=== PATIENT | male | born 1955 | race Caucasian/White ===

== ENCOUNTER 2017-06-16 08:00 | Emergency (ER) | payer MEDICAID ==
[2017-06-16 08:11] VITALS: BP 124/80
--- NOTE | 2017-06-16 09:10 | Emergency Department Report ---
ED Recheck HPI - General Chief Complaint: Medical Clearance Stated Complaint: MED REFILL Time Seen by Provider: 06/16/17 08:25 Source: patient Mode of arrival: Ambulatory Limitations: No Limitations - History of Present Illness Initial Comments: Patient here requesting a refill on multiple medication to include antibiotic anxiety and mental health medication. Patient said he just moved from [place] and he does not have a doctor here and he is trying to find one. He is requesting a refill until he can get into see a doctor. Denies any pain. Denies any nausea or vomiting. Denies any fever or chills. Denies any headache. Patient has a history of congestive heart failure schizophrenia and bipolar. Denies any cough or shortness of breath. Patient does have medication for a few days. He states that he has about 3 days worth of medication. Complaint: medication refill request Initial Visit For: other (not applicable) Returns Today for: request for prescription Symptoms Since Prior Visit: no new symptoms Context: ran out of medication (patient almost running out of medication) Associated Symptoms: none Treatments Prior to Arrival: other (not applicable) - Related Data Allergies Allergy/AdvReac Type Severity Reaction Status Date / Time No Known Allergies Allergy Verified 06/16/17 08:02 ED Review of Systems ROS: Stated complaint: MED REFILL Other details as noted in HPI Comment: All other systems reviewed and negative Constitutional: denies: chills, fever Eyes: denies: vision change ENT: denies: throat pain, epistaxis, congestion Respiratory: no symptoms reported Cardiovascular: denies: chest pain, palpitations, edema, syncope Gastrointestinal: abdominal pain. denies: nausea, vomiting, diarrhea, constipation Genitourinary: denies: urgency, dysuria, frequency, hematuria, discharge, testicular pain, testicular mass Musculoskeletal: denies: back pain, joint swelling, arthralgia, myalgia Skin: denies: rash Neurological: denies: headache, weakness, numbness, paresthesias, confusion, abnormal gait, vertigo Psychiatric: denies: anxiety, depression, homicidal thoughts, suicidal thoughts ED Past Medical Hx - Past Medical History Previous Medical History?: Yes Hx Congestive Heart Failure: Yes Hx Psychiatric Treatment: Yes (schizophrenia, bipolar) - Surgical History Past Surgical History?: No - Family History Family history: hypertension - Social History Smoking Status: Current Every Day Smoker Substance Use Type: Alcohol ED Physical Exam - General Limitations: No Limitations General appearance: alert, in no apparent distress - Head Head exam: Present: atraumatic, normocephalic, normal inspection - Eye Eye exam: Present: normal appearance, PERRL, EOMI Pupils: Present: normal accommodation - ENT ENT exam: Present: normal exam, mucous membranes dry, mucous membranes moist - Neck Neck exam: Present: normal inspection, full ROM. Absent: tenderness, lymphadenopathy - Respiratory Respiratory exam: Present: normal lung sounds bilaterally, respiratory distress. Absent: wheezes, rales, rhonchi, stridor, chest wall tenderness - Cardiovascular Cardiovascular Exam: Present: normal rhythm, bradycardia, normal heart sounds. Absent: systolic murmur, diastolic murmur - GI/Abdominal GI/Abdominal exam: Present: soft, normal bowel sounds. Absent: distended, tenderness, guarding, rebound, rigid - Extremities Exam Extremities exam: Present: normal inspection, full ROM, normal capillary refill. Absent: tenderness, pedal edema, joint swelling, calf tenderness - Back Exam Back exam: Present: normal inspection, full ROM. Absent: tenderness, CVA tenderness (R), CVA tenderness (L), muscle spasm, paraspinal tenderness, vertebral tenderness, rash noted - Neurological Exam Neurological exam: Present: alert, oriented X3, normal gait, reflexes normal. Absent: motor sensory deficit - Psychiatric Psychiatric exam: Present: normal affect, normal mood. Absent: depressed, agitated, anxious, flat affect, manic, homicidal ideation, suicidal ideation - Skin Skin exam: Present: warm, dry, intact, normal color. Absent: rash ED Course Vital Signs 06/16/17 08:03 Temperature 97.8 F Pulse Rate 55 L Respiratory 16 Rate Blood Pressure 124/80 O2 Sat by Pulse 100 Oximetry - Reevaluation(s) Reevaluation #1: 06/16/17 09:33 Patient here for medication refill. Uneventful ED stay ED Recheck MDM - Medical Decision Making ED course: Patient here requesting in refills on multiple medication. He said he just moved from [place] and he has a few days left on his medication and he also requested to be set up for cardiology of appointment. Patient with multiple medication to refill. I spoke to attending Dr. Zayas and he wants patient to follow-up with [facility] where he can have labs drawn before prescribing medication. Patient vital signs are stable and afebrile. I discussed plan with patient and he is in agreement and he says he'll call [facility] to set up an appointment for a new patient visit. Assessment/plan 1. Encounter for medication refill Patient multiple comorbidities and needs labs checked prior to dispense the medication. Patient referred to [facility] and I encouraged him to call today to schedule an appointment for new patient visit. Discharged home in stable condition Critical care attestation.: If time is entered above; I have spent that time in minutes in the direct care of this critically ill patient, excluding procedure time. ED Disposition Clinical Impression: Medication refill Disposition: DC-01 TO HOME OR SELFCARE Is pt being admited?: No Does the pt Need Aspirin: No Condition: Stable Instructions: Heart Failure (ED), Schizophrenia (ED), Chronic Hypertension (ED) Additional Instructions: Please follow up at [facility] as instructed. He will need to be established a primary care physician and have labs due to multiple medication Please call [facility] today to schedule an appointment. Referrals: [facility] [Outside] - 06/17/17
== END 2017-06-16 09:49 | disposition home or self-care (01) ==
LOC: ED 08:00
DX: Z76.0 Encounter for issue of repeat prescription (principal); I50.9 Heart failure, unspecified; F20.9 Schizophrenia, unspecified; F31.9 Bipolar disorder, unspecified; F17.200 Nicotine dependence, unspecified, uncomplicated
CPT/HCPCS: 99282

== ENCOUNTER 2017-07-13 16:21 | Emergency (ER) | payer MEDICAID ==
[2017-07-13 16:54] VITALS: BP 146/93
[2017-07-13] MEDS ORDERED: NACL 0.9% IR ONE (16:54)
[2017-07-13] MEDS ORDERED: BOOSTRIX IM ONE (16:54)
[2017-07-13] MEDS ORDERED: XYLOCAINE 1% 20 mL INFILTRATI ONE (16:54)
--- NOTE | 2017-07-13 16:56 | Emergency Department Report ---
Chief Complaint: Skin/Abscess/Foreign Body Stated Complaint: INSECT BITE LEFT ARM Time Seen by Provider: 07/13/17 16:53 - HPI History of Present Illness: PT c/o spider bite to L fa - ROS Review of Systems: + arm pain and swelling - Exam Vital Signs: Vital Signs 07/13/17 16:51 Temperature 99 F Pulse Rate 72 Respiratory 16 Rate Blood Pressure 146/93 O2 Sat by Pulse 100 Oximetry Physical Exam: abscess to L fa MSE screening note: Focused history and physical exam performed. Due to findings the following was ordered: meds ED Disposition for MSE Condition: Stable
== END 2017-07-13 17:57 | disposition left against medical advice (07) ==
LOC: ED 16:21
DX: M79.602 Pain in left arm (principal); Z53.21 Procedure and treatment not carried out due to patient leaving prior to being seen by health care provider

== ENCOUNTER 2017-07-21 13:03 | Emergency (ER) | payer MEDICAID ==
[2017-07-21] MEDS ORDERED: CLEOCIN PO ONE (18:43)
--- NOTE | 2017-07-21 18:46 | Emergency Department Report ---
- General Chief complaint: Skin/Abscess/Foreign Body Stated complaint: LEFT ARM ABSCESS Time Seen by Provider: 07/21/17 18:42 Source: patient Mode of arrival: Ambulatory Limitations: No Limitations - History of Present Illness MD complaint: abscess/boil - Related Data Previous Rx's Medication Instructions Recorded Last Taken Type Cephalexin [Keflex] 500 mg PO QID #28 capsule 07/21/17 Unknown Rx Clindamycin [Clindamycin CAP] 300 mg PO Q6H #28 capsule 07/21/17 Unknown Rx Naproxen [Naprosyn TAB] 500 mg PO BID PRN #25 tablet 07/21/17 Unknown Rx Allergies Allergy/AdvReac Type Severity Reaction Status Date / Time No Known Allergies Allergy Verified 06/16/17 08:02 Abscess Boil [facility] Chief Complaint: Skin/Abscess/Foreign Body Stated Complaint: LEFT ARM ABSCESS Time Seen by Provider: 07/21/17 18:42 Home Medications: Previous Rx's Medication Instructions Recorded Last Taken Type Cephalexin [Keflex] 500 mg PO QID #28 capsule 07/21/17 Unknown Rx Clindamycin [Clindamycin CAP] 300 mg PO Q6H #28 capsule 07/21/17 Unknown Rx Naproxen [Naprosyn TAB] 500 mg PO BID PRN #25 tablet 07/21/17 Unknown Rx Allergies/Adverse Reactions: Allergies Allergy/AdvReac Type Severity Reaction Status Date / Time No Known Allergies Allergy Verified 06/16/17 08:02 ED Review of Systems ROS: Stated complaint: LEFT ARM ABSCESS Other details as noted in HPI ED Past Medical Hx - Past Medical History Previous Medical History?: Yes Hx Congestive Heart Failure: Yes Hx Psychiatric Treatment: Yes (schizophrenia, bipolar) Additional medical history: Left arm abscess - Surgical History Past Surgical History?: No - Social History Smoking Status: Current Every Day Smoker Substance Use Type: Alcohol, Prescribed - Medications Home Medications: Home Medications Medication Instructions Recorded Confirmed Last Taken Type Cephalexin [Keflex] 500 mg PO QID #28 capsule 07/21/17 Unknown Rx Clindamycin [Clindamycin CAP] 300 mg PO Q6H #28 capsule 07/21/17 Unknown Rx Naproxen [Naprosyn TAB] 500 mg PO BID PRN #25 tablet 07/21/17 Unknown Rx ED Physical Exam - General Limitations: No Limitations ED Course Vital Signs 07/21/17 13:28 Temperature 98.7 F Pulse Rate 56 L Respiratory 18 Rate Blood Pressure 150/93 O2 Sat by Pulse 100 Oximetry Critical care attestation.: If time is entered above; I have spent that time in minutes in the direct care of this critically ill patient, excluding procedure time. ED Disposition Clinical Impression: Abscess of arm, left Disposition: DC-01 TO HOME OR SELFCARE Is pt being admited?: No Does the pt Need Aspirin: No Condition: Stable Instructions: Abscess (ED), Cellulitis (ED) Prescriptions: Cephalexin [Keflex] 500 mg PO QID #28 capsule Clindamycin [Clindamycin CAP] 300 mg PO Q6H #28 capsule Naproxen [Naprosyn TAB] 500 mg PO BID PRN #25 tablet PRN Reason: Pain Referrals: [facility] [Outside] - 3-5 Days [facility] [Outside] - 3-5 Days [facility] [Provider Group] - 3-5 Days Forms: Work/School Release Form(ED) Time of Disposition: 18:45
[2017-07-22 00:03] VITALS: BP 162/106
== END 2017-07-21 19:00 | disposition home or self-care (01) ==
LOC: ED 13:03
DX: L02.414 Cutaneous abscess of left upper limb (principal); F31.9 Bipolar disorder, unspecified; F20.9 Schizophrenia, unspecified; F17.200 Nicotine dependence, unspecified, uncomplicated
CPT/HCPCS: 99282